=== PATIENT | male | born 1995 | race Caucasian/White ===

== ENCOUNTER 2018-01-16 13:26 | Emergency (ER) | payer SELFPAY, OTHER ==
[2018-01-16] MEDS: LIDOCAINE 1% (MDV) 10 ML INJ INFIL (13:48)
[2018-01-16] MEDS: DIPHTH/TET/ACEL PERTUSS (ADULT) 0.5 ML VIAL IM* (14:20)
[2018-01-16] MEDS: LIDOCAINE 1% (MPF) 5 ML VIAL INJ (14:55)
== END 2018-01-16 15:48 | disposition home or self-care (01) ==
LOC: FTE 13:26
DX: S01.112A Laceration without foreign body of left eyelid and periocular area, initial encounter (principal); W50.0XXA Accidental hit or strike by another person, initial encounter; Y92.322 Soccer field as the place of occurrence of the external cause; Z23 Encounter for immunization
CPT/HCPCS: 12011; 90471; 90715; 99283-25